=== PATIENT | female | born 1950 | race Caucasian/White ===

== ENCOUNTER → 2016-09-20 | Outpatient (CLI) | payer MEDICARE, OTHER ==
[~2016-09-20] MED LIST: BEE POLLEN550 MG PO; BIOTIN800 MCG PO; CALCIUM CARBON600 MG PO; COD LIVER OIL1 EAC1 PO; CRO-MAN-ZIN TA1 EACH PO; FISH OIL 1,2001 EACH PO; FOLIC ACID 40400 MCG PO; GARLIC1 EAC1 PO; MULTI FOR HER1 EACH PO; NORCO 5-325 MG1 TAB PO; TUMERIC PO; VITAMIN B-121000 MCG PO; VITAMIN B-6100 MG PO; VITAMIN D-32000 UNI1 PO
== END | disposition disaster alternative care site (69) ==
LOC: GBCOE 11:13
DX: Z12.31 Encounter for screening mammogram for malignant neoplasm of breast (principal); Z85.3 Personal history of malignant neoplasm of breast; Z98.890 Other specified postprocedural states
CPT/HCPCS: G0202